=== PATIENT | female | born 2000 | race Hispanic/Latino ===

== ENCOUNTER 2020-10-16 12:17 | Emergency (ER) | payer MEDICARE, OTHER ==
[~2020-10-16] VITALS: Ht 157.5 cm; Wt 57.6 kg
== END 2020-10-16 13:00 | disposition home or self-care (01) ==
LOC: ER 13:00
DX: O26.892 Other specified pregnancy related conditions, second trimester (principal); R42 Dizziness and giddiness; D69.3 Immune thrombocytopenic purpura
CPT/HCPCS: 36415; 82948; 93005; 99282